=== PATIENT | male | born 1970 | race Two or more races ===

== ENCOUNTER → 2021-11-09 | Outpatient (CLI) | payer OTHER ==
[~2021-11-09] MED LIST: ISOVUE-300 61% 50ML VIAL As Ordered ONE; LIDOCAINE 1% MDV 20ML VIAL As Ordered ONE; TRIAMCINOLONE ACETONIDE SUSP 40 MG/ML VIAL (J3301) As Ordered ONE
== END ==
LOC: M RADPRO 14:08
PROVIDERS: ATTEND Physician Assistant Surgical
DX: M25.552 Pain in left hip (principal)
CPT/HCPCS: 20610; 77002; J3301; Q9967

== ENCOUNTER → 2021-11-29 | Outpatient (CLI) | payer OTHER | LOC: M RADPRO 14:58 | PROVIDERS: ATTEND Physician Assistant Surgical | DX: M25.551 Pain in right hip (principal) | CPT/HCPCS: 20610; 76000; J3301; Q9967 ==

== ENCOUNTER → 2022-02-26 | Outpatient (CLI) | payer OTHER ==
[2022-02-26 10:24] LABS: BASO % 0.8 % (0.0-1.0); EOS # 0.2 10^3/uL (0.0-0.5); HEMATOCRIT 43.3 % (42.0-52.0); HEMOGLOBIN 14.4 g/dl (13.5-17.5); LYMPH # 1.7 10^3/uL (1.5-5.0); LYMPH % 32.8 % (24.0-44.0); MEAN CORPUSCULAR HEMOGLOBIN 28.7 pg (27.0-33.0); MEAN CORPUSCULAR HGB CONC 33.3 g/dl (32.0-36.5); MEAN CORPUSCULAR VOLUME 86.4 fl (80.0-96.0); MONO # 0.6 10^3/uL (0.0-0.8); MONO % 10.9 % (2.0-8.0); NEUTROPHILS # 2.7 10^3/uL (1.5-8.5); NEUTROPHILS % 51.1 % (36.0-66.0); PLATELET COUNT, AUTOMATED 233 10^3/uL (150-450); RED BLOOD COUNT 5.01 10^6/uL (4.30-6.10); WHITE BLOOD COUNT 5.3 10^3/uL (4.0-10.0)
[2022-02-26 10:44] LABS: ERYTHROCYTE SEDIMENTATION RATE 6 mm/hr (0-20)
== END ==
LOC: M PLAIMG 08:48
PROVIDERS: ATTEND Internal Medicine Infectious Disease
DX: T81.49XA Infection following a procedure, other surgical site, initial encounter (principal); L02.512 Cutaneous abscess of left hand; Y83.9 Surgical procedure, unspecified as the cause of abnormal reaction of the patient, or of later complication, without mention of misadventure at the time of the procedure
CPT/HCPCS: 36415; 73120; 85025; 85652; 86140; G0463

== ENCOUNTER 2022-06-30 15:10 | Emergency (ER) | payer OTHER ==
[~2022-06-30] VITALS: Ht 175.3 cm; Wt 95.4 kg
[2022-06-30 18:38] VITALS: BP 150/90
[2022-06-30] MEDS ORDERED: LIDOCAINE 1% MDV 20ML VIAL INFIL ONE (18:45)
[2022-06-30] MEDS ORDERED: ceFAZolin SOD 1 GM in D5W MINI-BAG PLUS 50 ML IV ONE (20:15)
[2022-06-30] MEDS ORDERED: CEPH500C PO (20:17)
[2022-06-30] MEDS ORDERED: PERCOCET 5MG/325MG TAB PO ONE (21:00)
[2022-07-09] MEDS ORDERED: ESOM20CA25 PO (11:32)
[2022-07-09] MEDS ORDERED: GABA-282 PO (11:32)
[2022-07-09] MEDS ORDERED: ATOR40TA75 PO (11:32)
[2022-07-09] MEDS ORDERED: DOCU100C16 PO (11:32)
[2022-07-09] MEDS ORDERED: ASPI-523 PO (11:32)
[2022-07-09] MEDS ORDERED: CELE1CAP9 PO (11:32)
== END 2022-06-30 21:41 | disposition home or self-care (01) ==
LOC: M ED 15:10
DX: S61.411A Laceration without foreign body of right hand, initial encounter (principal); S61.011A Laceration without foreign body of right thumb without damage to nail, initial encounter; W22.8XXA Striking against or struck by other objects, initial encounter; Y92.009 Unspecified place in unspecified non-institutional (private) residence as the place of occurrence of the external cause

== ENCOUNTER 2022-07-24 06:00 | Day surgery (SDC) | payer OTHER ==
[~2022-07-24] VITALS: Ht 175.3 cm; Wt 94.8 kg
[~2022-07-24 06:00] MED LIST changes: +ASPI-523 PO; +ATOR40TA75 PO; +CELE1CAP9 PO; +CEPH500C PO; +DOCU100C16 PO; +ESOM20CA25 PO; +GABA-282 PO; -ISOVUE-300 61% 50ML VIAL As Ordered ONE; -LIDOCAINE 1% MDV 20ML VIAL As Ordered ONE; +LIDOCAINE W/EPINEPHRINE 1% 20ML VIAL XX ONE; +SODIUM BICARBONATE 8.4% INJ 50MEQ 50ML VIAL XX ONE; -TRIAMCINOLONE ACETONIDE SUSP 40 MG/ML VIAL (J3301) As Ordered ONE
[2022-07-24] MEDS ORDERED: BUPIVACAINE HCL 0.25% 30ML VIAL As Ordered ONE (07:21)
[2022-07-24] MEDS ORDERED: LIDOCAINE 1% SDV 30ML VIAL As Ordered ONE (07:21)
[2022-07-24] MEDS ORDERED: POLYSPORIN TOPICAL OINTMENT 15GM As Ordered ONE (07:22)
[2022-07-24 10:30] VITALS: BP 138/88
[2022-07-24] MEDS ORDERED: CEPH500T PO (10:36)
[2022-07-24] MEDS ORDERED: PERC5TAB12 PO (10:36)
== END 2022-07-24 10:40 | disposition home or self-care (01) ==
LOC: M SDC 06:00
PROVIDERS: ATTEND Orthopaedic Surgery Hand Surgery
DX: M25.641 Stiffness of right hand, not elsewhere classified (principal)